=== PATIENT | male | born 1995 | race Caucasian/White ===

== ENCOUNTER 2016-08-15 17:37 | Emergency (ER) | payer OTHER ==
[~2016-08-15] VITALS: Ht 193 cm; Wt 122.5 kg
[~2016-08-15 17:37] MED LIST: CLARITIN10 MG PO; LEVOFLOXACIN500 MG PO; NAPROSYN375 MG PO; PERCOCET 325 MG1 TA2 PO; ZYRTEC10 M1 PO
[2016-08-15 18:00] VITALS: BP 143/86
== END 2016-08-15 19:42 | disposition home or self-care (01) ==
LOC: ED 17:37
DX: S83.91XA Sprain of unspecified site of right knee, initial encounter (principal); Z79.899 Other long term (current) drug therapy; X58.XXXA Exposure to other specified factors, initial encounter; Y93.89 Activity, other specified; Y92.9 Unspecified place or not applicable; Y99.9 Unspecified external cause status

== ENCOUNTER → 2017-05-06 | Outpatient (CLI) | payer OTHER | END | disposition home or self-care (01) | LOC: RAD 07:52 | DX: K21.9 Gastro-esophageal reflux disease without esophagitis (principal) ==

== ENCOUNTER → 2025-01-06 | Outpatient (CLI) | payer OTHER ==
[~2025-01-06] MED LIST changes: +CARVEDILOL6.25 MG PO; +METHYLPRED-DP4 MG PO; +OMEPRAZOLE40 MG PO
== END | disposition home or self-care (01) ==
LOC: US 07:50
PROVIDERS: ATTEND Student in an Organized Health Care Education/Training Program
DX: K76.0 Fatty (change of) liver, not elsewhere classified (principal); R74.01 Elevation of levels of liver transaminase levels